=== PATIENT | male | born 1965 | race Caucasian/White ===

== ENCOUNTER 2022-02-16 20:14 | Emergency (ER) | payer SELFPAY ==
[2022-02-16] VITALS (13 sets, daily range): BP systolic 126–159; BP diastolic 83–94; PULSE 58–106; RESP 7–18; TEMP 36.4; O2SAT 81–100
--- NOTE | 2022-02-16 20:15 | DI.CT_ITS ---
Exam(s) CT HEAD CERVICAL SPINE WO EXAM: CT HEAD CERVICAL SPINE WO CLINICAL HISTORY: altered mental status. TECHNIQUE: Imaging Protocol: Axial computed tomography images with coronal and sagittal reformatted images were created and reviewed COMPARISON: No exams were available for comparison FINDINGS: BRAIN: There are no skull fractures nor fluid in the visualized paranasal sinuses. There is no evidence of intracranial hemorrhage, mass effect, or shift of midline structures. There are no extra-axial fluid collections. The ventricles are not enlarged or shifted and there is no blo od within the ventricular system nor within the basal cisterns. CERVICAL SPINE: There is no evidence of fracture nor listhesis. No significant prevertebral soft tissue swelling. Chronic disc space narrowing at C5-6 and C6-7 levels. There is some facet arthropathy. There is no significant facet joint malalignment. No significant osseous lesions evident. IMPRESSION: No acute intracranial findings on this noninfused CT scan of the brain. No evidence of cervical spine fracture, malalignment, nor acute compromise of the cervical spinal can al. Chronic degenerative disc disease. RADIATION DOSE DELIVERED: 1,376.16mGy.cm Total DLP DATA REPOSITORY: All CT scans at this facility are submitted to the National Radiology Data Registry (NRDR) Dose Index Registry (DIR) with the [employer] (ACR). RADIATION OPTIMIZATION: All CT scans at this facility use at least one of these dose optimization te chniques: automated exposure control; mA and/or kV adjustment per patient size (includes targeted exa ms where dose is matched to clinical indication); or iterative reconstruction.
--- NOTE | 2022-02-16 20:15 | DI.CT_ITS ---
Exam(s) CT CHEST/ABD/PEL W EXAM: CT CHEST/ABD/PEL W CLINICAL HISTORY: found in ditch, altered mental status. TECHNIQUE: Imaging Protocol: Axial computed tomography images with coronal and sagittal reformatted images were created and reviewed CONTRAST MATERIAL: Intravenous: Omnipaque 350 Contrast volume:100 ml Oral: None COMPARISON: No exams were available for comparison FINDINGS: CHEST: LUNGS: Ground-glass increased markings both upper lobes. No pleural effusions. No focal lung contus ion. No pneumothorax.. MEDIASTINUM: No mediastinal hematoma evident. No hilar nor mediastinal adenopathy. Visualized thyro id unremarkable.The entire esophagus is fluid-filled and dilated, all the way down to the stomach. T here is no paraesophageal adenopathy. CARDIAC: Heart size is normal. There is no pericardial effusion.Thoracic aorta is intact and appears unremarkable. OSSEOUS: There is a subacute appearing fracture of the posterolateral aspect of the right 11th rib. No other fractures identified.. ABDOMEN: There is no ascites. No evidence of bowel wall nor mesenteric hematoma. LIVER: Liver is hypodense implying steatosis. No focal hepatic lesions evident. No hepatic lacerati ons seen. GALLBLADDER/BILIARY: No obvious gallbladder pathology. CBD is not dilated. PANCREAS: No evidence of pancreatic mass nor dilatation of the pancreatic duct. SPLEEN: Spleen is not enlarged. There are no intrasplenic lesions. No splenic laceration. Splenic a nd portal veins are patent. ADRENALS: There are no significant adrenal masses. KIDNEYS: No evidence of renal laceration or subcapsular hematoma. There is an exophytic cyst off the posterior aspect of the right kidney which measures 1.2 x 1.2 cm. No solid renal masses. No calcul i. No hydronephrosis. Retroaortic left renal vein incidentally noted.. Ureters are not dilated and there is no obvious focal abnormality in the urinary bladder. ABDOMINAL AORTA: Calcified but not enlarged. Common iliac arteries are also calcified but not enlarg ed. LYMPH NODES: There is no retroperitoneal nor paraaortic adenopathy. ABDOMINAL WALL: No evidence of significant anterior abdominal hernia. However, there is a an oval de nsity in the right inguinal canal which measures 0.5 by 2.2 cm. Possibly undescended testicle. GI: There is no evidence of bowel obstruction.No bowel wall hematoma. No mesenteric hematoma. PELVIS: LYMPH NODES: There is no intrapelvic nor inguinal adenopathy. GI: No evidence of appendicitis.No evidence of sigmoid diverticulitis. URINARY BLADDER: No calculi nor masses evident REPRODUCTIVE: Prostate gland normal size. Seminal vesicles unremarkable. OSSEOUS: No fractures of the lumbar vertebral bodies and transverse process is nor fractures of the p elvic bones. No significant osseous lesions. Sacroiliac joints unremarkable IMPRESSION: 1. There is a subacute appearing fracture of the posterolateral aspect of the right 11th rib. No oth er fractures identified. There is no pneumothorax. 2. No evidence of lung nor mediastinal trauma although the esophagus is noted to be fluid-filled and dilated throughout its entire length. This is abnormal in should be further investigated. 3. No evidence of significant trauma sequelae in the abdomen and pelvis. 4. Incidentally noted is what appears to be a possible undescended testicle on the right side. This can be further studied with ultrasound of the scrotum-testicles. This CT study was 1st read by [facility] Final report called by myself to ER physician 02/17/2022 at 8:40 a.m.. RADIATION DOSE DELIVERED: 1554.93 mGy.cm Total DLP DATA REPOSITORY: All CT scans at this facility are submitted to the National Radiology Data Registry (NRDR) Dose Index Registry (DIR) with the [employer] (ACR). RADIATION OPTIMIZATION: All CT scans at this facility use at least one of these dose optimization te chniques: automated exposure control; mA and/or kV adjustment per patient size (includes targeted exa ms where dose is matched to clinical indication); or iterative reconstruction.
--- NOTE | 2022-02-16 20:32 | W.ED.GENAD ---
Discharge Plan Disposition Patient Disposition: [facility] Condition: Stable Discharge Details Clinical Impression: Altered mental status, Fall, Alcohol intoxication Primary Care Provider: Unknown,Unknown ED Provider: Luis E Weldon Discharge Instructions Instructions: Alcohol Intoxication (ED) Care Plan Goals: limit alcohol use to 2 drinks daily follow up with your primary care provider within 1 week if you feel more ill, have difficulty breathing or severe pain return to the emergency department Medical Decision Making 56 yo male with unknown medical history comes in with ems after he was found unresponsive in a ditch. EMS was called and reportedly gave him narcan with some increase in responsiveness. He arrives sleeping but will talk to verbal stimuli though doesn't answer appropriately (ie when asked where he is he says [place] and laughs). He is moving all extremities, no signs of trauma, pupils are pinpoint. I suspect drug intoxication, is protecting airway and awakens easily so do not feel additional narcan needed. Will obtian labs including cbc, cmp, etoh level, and given unclear cause for him in the ditch obtain ct head/c spine/chest/abd/pelvis to evaluate for traumatic injuries. imaging and labs show no acute findings, etoh level is 211. CT noted undescended testicles, he is now awake and walking and answering questions appropriately and denies any scrotal pain. He has an unsteady gait and not clinically sober, has slurred speech. He does know now he is in [place] and states he normally is in [facility]. Nursing spoke to his daughter who works at [employer] and is working tonight and can't come to get him and he has a history of being intoxicated and requiring overnight stays at prisons near [place]. He has no other ride, will have mental health evaluate for possible referral to corrections for the night as all imaging and labs show no emergent findings. He denies SI/HI Differential Diagnosis Differential Diagnosis: tbi, alcohol intoxication, drug intoxication Imaging Data Radiologic Study: Attestation: I personally reviewed and interpreted this imaging study as follows: Imaging: CT Scan Radiologist's impression: no acute findings head/c spine ct Radiologic Study #2: Attestation: I personally reviewed and interpreted this imaging study as follows: Imaging: CT Scan Radiologist's impression: IMPRESSION: 1. No acute fracture or internal organ injury. 2. Fluid-filled dilated esophagus, likely achalasia. IMPRESSION: 1. No acute fracture or internal organ injury. 2. Benign right renal cyst free no further imaging required. 3. Possible undescended right testicle; correlate clinically Radiologic Study #3: Attestation: I personally reviewed and interpreted this imaging study as follows: Imaging: CT Scan Radiologist's impression: no acute findings recons of L and T spine Lab Data Lab results reviewed: Yes I reviewed the patient's lab results. HPI General Mode of arrival: EMS. Date/Time Provider Initiated Documentation: 02/16/22 20:18. Limitations to Documentation: altered mental status. Information obtained by: EMS. History of Present Illness 56 year old M presents to the emergency department with the chief complaint of found in ditch, described as moderate, Patient started experiencing this unknown and it has been constant. improves with No relieving factors improve symptom(s), No exacerbating factors reported . Patient notes no other symptoms.. Patient did receive the following treatments prior to arrival, none General Stated Complaint: AMS/LOC MANUEL: 3 Review of Systems Unobtainable due to mental condition PFSH All Active Problems (Updated 02/16/22 @ 23:18 by Luis E Weldon MD) Altered mental status (Acute) Fall (Acute) Alcohol intoxication (Acute) Social History Smoking/Tobacco Use Status: Current every day Tobacco Type: cigarettes Smoking risk assessment performed?: Yes Alcohol Intake: current Alcohol Intake frequency: 3 or more drinks per day Drug use: Never Substance use type: does not use Do you feel safe at home: Yes Do you feel safe in your relationship?: Yes Course Vital Signs Vital signs: Vital Signs Temperature 36.4 C L 02/16/22 20:13 Pulse 92 H 02/16/22 20:13 Respiratory Rate 18 02/16/22 20:13 Blood Pressure 154/94 H 02/16/22 20:13 Pulse Oximetry 100 02/16/22 20:13 Temperature 36.4 C L 02/16/22 20:13 Temperature Source Tympanic 02/16/22 20:13 Pulse 92 H 02/16/22 20:13 Respiratory Rate 18 02/16/22 20:13 Respiratory Effort 02/16/22 20:18 Respiratory Depth Normal 02/16/22 20:18 Respiratory Pattern Normal 02/16/22 20:18 Blood Pressure 154/94 H 02/16/22 20:13 Blood Pressure Position Supine 02/16/22 20:13 Pulse Oximetry 100 02/16/22 20:13 Oxygen Delivery Method Room Air 02/16/22 20:13 Oxygen Flow Rate 0 02/16/22 20:13 Pain Level 0 02/16/22 20:13 PAWSS Have you Been Recently Intoxicated or Drunk Within the Last 30 days?: Yes Have you Ever Experienced Previous Episodes of Alcohol Withdrawal?: Yes Have you ever Experienced Withdrawal Seizures?: No Have you ever Experienced Delirium Tremens(DT)s?: No Have you ever undergone Alcohol Rehabilitation Treatment (i.e, inpt ot outpatient treatment programs)?: No Have you ever Experienced Blackouts?: Yes Have you ever Combined Alcohol with other Downers within the last 90 days?: Yes Have you ever Combined Alcohol with any other Substance of Abuse during the last 90 days?: Yes Positive Blood Alcohol level on Presentation? [PCS.BAL]: Yes Evidence of Increased Autonomic Activity (i.e. HR>120, tremor, sweating, agitation, nausea)?: No Result: 6
[2022-02-16 20:34] LABS: Abs Immature Grans 0.04 10^3/uL (0.0-0.06); Absolute Eosinophil Count 0.01 10^3/uL (0.0-0.7); Absolute Lymphocyte Count 1.76 10^3/uL (1.2-3.4); Absolute Monocyte Count 0.54 10^3/uL (0.1-0.8); Basophils % 0.2; Eosinophils % 0.1; HCT 43.6 % (40.0-50.0); Immature Grans % 0.3; Lymphocytes % 14.3; MCH 32.7 pg (27.0-33.0); MCHC 32.1 % (32.0-36.0); MCV 101.9 fL (80-95); MPV 9.7 fL (8.0-11.0); Monocytes % 4.4; Neutrophils % 80.7; Nucleated RBC 0 %; Platelet Count 360 10^3/uL (130-400); RBC 4.28 10^6/uL (4.36-5.78); RDW 12.9 % (11.8-14.1); RDW-SD 48.4 fL
[2022-02-16 20:35] LABS: Source Nasal/Nares
[2022-02-16 20:38] LABS: Absolute Basophil Count 0.02 10^3/uL (0.0-0.2); Absolute Neutrophil Count 9.93 10^3/uL (1.2-6.7)
[2022-02-16 20:45] LABS: ETHANOL BLOOD 211.6 mg/dL (<10)
[2022-02-16 20:51] LABS: ALT 29 U/L (16-63); AST 54 U/L (15-37); Albumin 4.4 g/dL (3.4-5.0); Alkaline Phosphatase 81 U/L (46-116); Anion Gap 13.3 mmol/L (3-11); BUN 16 mg/dL (7-18); Bilirubin, Total 0.2 mg/dL (0.2-1.0); CO2 23.7 mmol/L (21.0-32.0); CREATININE 1.3 mg/dL (0.70-1.30); Calcium 8.4 mg/dL (8.5-10.1); Chloride 102 mmol/L (98-107); Glucose 95 mg/dL (74-106); Magnesium 2.5 mg/dL (1.8-2.4); Potassium 4.1 mmol/L (3.5-5.1); Sodium 139 mmol/L (136-145); Total Protein 8.1 g/dL (6.4-8.2); Troponin I < 50 ng/L (<or=60)
[2022-02-16 21:09] LABS: Salicylate < 2.8 mg/dL (<2.8)
--- NOTE | 2022-02-16 21:09 | DI.CT_ITS ---
Exam(s) CT THORACIC LUMBAR SPINE REC EXAM: CT THORACIC LUMBAR SPINE REC CLINICAL HISTORY: please do reconstructions TECHNIQUE: COMPARISON: CT CT CHEST/ABD/PEL W from 02/16/2022 FINDINGS: THORACIC SPINAL CORD: There is no evidence of compression nor wedge fracture. No listhesis. No face t malalignment. Some degenerative disc disease is noted. No evidence of acute compromise of the spi nal canal. LUMBOSACRAL SPINAL COLUMN: There is no evidence of fracture or listhesis. No pars defects. Chronic disc space narrowing at L2-3 level noted. Also mild disc space narrowing at L5-S1 level. No promine nt foraminal stenosis. Mild facet degenerative changes. No facet malalignment. IMPRESSION: No evidence of fractures in the thoracic and lumbosacral spinal columns. Incidentally noted is patchy infiltrate in both lung ibarra. Recommend further testing including for Covid-19.
[2022-02-16 21:10] LABS: Acetaminophen < 2 ug/mL (10-30)
[2022-02-16 21:17] LABS: COVID-19 PCR Negative (Negative)
[2022-02-16] MEDS: Omnipaque 350 MG/ML 100 ML BTL IJ (21:32)
--- NOTE | 2022-02-16 22:17 | DI.VRAD_ITS ---
PROCEDURE INFORMATION: Exam: CT Head Without Contrast Exam date and time: 02/16/2022 9:33 PM Age: 56 years old Clinical indication: Altered mental status/memory loss; Confusion or disorientation; Other: Found in [place] TECHNIQUE: Imaging protocol: Computed tomography of the head without contrast. Radiation optimization: All CT scans at this facility use at least one of these dose optimization techniques: automated exposure control; mA and/or kV adjustment per patient size (includes targeted exams where dose is matched to clinical indication); or iterative reconstruction. COMPARISON: No relevant prior studies available. FINDINGS: Brain: Normal. No hemorrhage. Unremarkable white matter. No mass effect. Cerebral ventricles: No ventriculomegaly. Paranasal sinuses: Visualized sinuses are unremarkable. No fluid levels. Mastoid air cells: Visualized mastoid air cells are well aerated. Bones/joints: Unremarkable. No acute fracture. Soft tissues: Unremarkable. IMPRESSION: No acute intracranial abnormality. PROCEDURE INFORMATION: Exam: CT Cervical Spine Without Contrast Exam date and time: 02/16/2022 9:33 PM Age: 56 years old Clinical indication: Altered mental status/memory loss; Confusion or disorientation; Other: Found in [place] TECHNIQUE: Imaging protocol: Computed tomography images of the cervical spine without contrast. Radiation optimization: All CT scans at this facility use at least one of these dose optimization techniques: automated exposure control; mA and/or kV adjustment per patient size (includes targeted exams where dose is matched to clinical indication); or iterative reconstruction. COMPARISON: No relevant prior studies available. FINDINGS: Vertebrae: No acute fracture. No significant spondylolisthesis. Mild disc space narrowing at C4-C5. Moderate disc space narrowing and endplate degenerative spurring at C5-C6 and C6-C7. C2-C3: No significant disc protrusion. No severe spinal canal stenosis. No significant neural foraminal narrowing. C3-C4: No significant disc protrusion. No severe spinal canal stenosis. No significant neural foraminal narrowing. C4-C5: No significant disc protrusion. No severe spinal canal stenosis. No significant neural foraminal narrowing. C5-C6: Posterior disc/osteophyte. Moderate left neural foraminal stenosis. C6-C7: Posterior osteophytes. Moderate right and severe left neural foraminal stenosis. C7-T1: No significant disc protrusion. No severe spinal canal stenosis. No significant neural foraminal narrowing. Soft tissues: Unremarkable. Lungs: Mild paraseptal emphysema changes in the lung apices. IMPRESSION: 1. No acute fracture. 2. Multilevel cervical spondylosis, detailed above. Dictated and Authenticated by: Chauncey Givens MD. Ordering:JOSÉ Kimbrough MD
--- NOTE | 2022-02-16 22:52 | SUR.PHASEI ---
pt ambulating in room pt drinking juice pt denies pain or sob pt states feels sick from lack of etoh
--- NOTE | 2022-02-16 23:02 | DI.VRAD_ITS ---
PROCEDURE INFORMATION: Exam: CT Chest With Contrast; Diagnostic Exam date and time: 02/16/2022 9:54 PM Age: 56 years old Clinical indication: Other: AMS, found in ditch TECHNIQUE: Imaging protocol: Diagnostic computed tomography of the chest with contrast. Radiation optimization: All CT scans at this facility use at least one of these dose optimization techniques: automated exposure control; mA and/or kV adjustment per patient size (includes targeted exams where dose is matched to clinical indication); or iterative reconstruction. Contrast material: OMNIPAQUE 350; Contrast volume: 100 ml; Contrast route: INTRAVENOUS (IV); COMPARISON: CT HEAD CERVICAL SPINE WO 02/16/2022 9:33 PM FINDINGS: Lungs: Mild dependent ground-glass opacities, likely subsegmental atelectasis. Pleural spaces: Unremarkable. No pneumothorax. No pleural effusion. Heart: Unremarkable. No cardiomegaly. No pericardial effusion. Mediastinal space: Fluid-filled esophagus is mildly dilated. Aorta: Unremarkable. No aortic aneurysm. Lymph nodes: Unremarkable. No enlarged lymph nodes. Bones/joints: No acute fracture. Soft tissues: Unremarkable. IMPRESSION: 1. No acute fracture or internal organ injury. 2. Fluid-filled dilated esophagus, likely achlasia. PROCEDURE INFORMATION: Exam: CT Abdomen And Pelvis With Contrast Exam date and time: 02/16/2022 9:54 PM Age: 56 years old Clinical indication: Other: AMS, found in ditch TECHNIQUE: Imaging protocol: Computed tomography of the abdomen and pelvis with contrast. Radiation optimization: All CT scans at this facility use at least one of these dose optimization techniques: automated exposure control; mA and/or kV adjustment per patient size (includes targeted exams where dose is matched to clinical indication); or iterative reconstruction. Contrast material: OMNIPAQUE 350; Contrast volume: 100 ml; Contrast route: INTRAVENOUS (IV); COMPARISON: CT HEAD CERVICAL SPINE WO 02/16/2022 9:33 PM FINDINGS: Liver: Normal. No mass. Gallbladder and bile ducts: Normal. No calcified stones. No ductal dilation. Pancreas: Normal. No ductal dilation. Spleen: Normal. No splenomegaly. Adrenal glands: Normal. No mass. Kidneys and ureters: 15 mm right renal exophytic simple cyst. Kidneys and ureters are otherwise unremarkable. Stomach and bowel: Unremarkable. No obstruction. No mucosal thickening. Appendix: Normal appendix. Intraperitoneal space: Unremarkable. No free air. No significant fluid collection. Vasculature: Mild calcified atherosclerotic disease. No abdominal aortic aneurysm. Lymph nodes: Unremarkable. No enlarged lymph nodes. Urinary bladder: Unremarkable as visualized. Reproductive: Right testicle in the distal right inguinal canal. Bones/joints: Endplate degenerative spurring throughout the lower thoracic and upper lumbar spine. No acute fracture or focal suspicious osseous lesion. Soft tissues: Unremarkable. IMPRESSION: 1. No acute fracture or internal organ injury. 2. Benign right renal cyst free no further imaging required. 3. Possible undescended right testicle; correlate clinically. For Dictated and Authenticated by: Chauncey Givens MD. Ordering:JOSÉ Kimbrough MD
--- NOTE | 2022-02-16 23:06 | DI.VRAD_ITS ---
PROCEDURE INFORMATION: Exam: CT Thoracic Spine Without Contrast Exam date and time: 02/16/2022 9:54 PM Age: 56 years old Clinical indication: Other: AMS, found in ditch; Other: Unknown if trauma TECHNIQUE: Imaging protocol: Computed tomography images of the thoracic spine without contrast. Radiation optimization: All CT scans at this facility use at least one of these dose optimization techniques: automated exposure control; mA and/or kV adjustment per patient size (includes targeted exams where dose is matched to clinical indication); or iterative reconstruction. COMPARISON: CT HEAD CERVICAL SPINE WO 02/16/2022 9:33 PM FINDINGS: Vertebrae: Vertebral body heights are maintained. Endplate degenerative changes throughout. No significant spondylolisthesis. Mild multilevel midthoracic facet arthropathy. Discs/Spinal canal/Neural foramina: No significant central canal or neural foraminal stenosis. Soft tissues: Unremarkable. Esophagus: Dilated fluid-filled esophagus, likely achalasia. IMPRESSION: 1. No acute fracture. 2. Mild multilevel thoracic spondylosis. PROCEDURE INFORMATION: Exam: CT Lumbar Spine Without Contrast Exam date and time: 02/16/2022 9:54 PM Age: 56 years old Clinical indication: Other: AMS, found in ditch; Other: Unknown if trauma TECHNIQUE: Imaging protocol: Computed tomography images of the lumbar spine without contrast. Radiation optimization: All CT scans at this facility use at least one of these dose optimization techniques: automated exposure control; mA and/or kV adjustment per patient size (includes targeted exams where dose is matched to clinical indication); or iterative reconstruction. COMPARISON: CT HEAD CERVICAL SPINE WO 02/16/2022 9:33 PM FINDINGS: Vertebrae: Vertebral body heights are maintained. No significant spondylolisthesis [id number] disc space narrowing with endplate degenerative spurring at left T12-L1, L1-L2, and L2-L3. Discs/Spinal canal/Neural foramina: No significant disc protrusion. No severe spinal canal stenosis. No significant neural foraminal narrowing. Vasculature: Calcified atherosclerotic disease. No abdominal aortic aneurysm. Soft tissues: Unremarkable. IMPRESSION: 1. No acute fracture. 2. [id number] multilevel upper lumbar degenerative disc disease. Dictated and Authenticated by: Chauncey Givens MD. Ordering:JOSÉ Kimbrough MD
[2022-02-17 00:49] VITALS: BP 124/80; PULSE 91; RESP 16; O2SAT 96
[2022-02-17] MEDS: Ondansetron O.D.T. 4 MG TABEF PO (01:08)
--- NOTE | 2022-02-17 09:51 | W.ED.FU ---
Follow Up Plan: I was notified by radiology that patient had CT scan of the chest yesterday. Radiology note 11 for right rib fracture, possibly subacute. [facility] currently at correctional facility after being discharged to that facility with acute alcohol intoxication. I discussed patient with nurse at correctional facility, who stated that patient not currently complaining of rib/chest pain. Discharge information updated and printed, discharge packet back to fax number provided by correctional facility. Nurse states she will provide patient with updated discharge information and updated diagnosis. Stated to the nurse that if patient wishes to be reevaluated in the emergency department he may return here at any time. She verbalizes understanding and states that she will relay this information to him.
== END 2022-02-17 01:28 | disposition home or self-care (01) ==
PROVIDERS: Emergency Provider Emergency Medicine
DX: R41.82 Altered mental status, unspecified (principal); F10.129 Alcohol abuse with intoxication, unspecified; Y90.7 Blood alcohol level of 200-239 mg/100 ml; S22.31XA Fracture of one rib, right side, initial encounter for closed fracture; W19.XXXA Unspecified fall, initial encounter
CPT/HCPCS: 74177; 80053; 87635; 99284; 99285; 70450; 71260; 72125; 80320; 80329; 83735; 84484; 85025; J3490